=== PATIENT | female | born 1945 | race Caucasian/White ===

== ENCOUNTER 2017-10-17 22:30 | Inpatient (IN) ==
[2017-10-18] MEDS ORDERED: ALBUTEROL/IPRATROPIUM 3 ML NEB RESP TX PRN (00:55)
[2017-10-18] MEDS ORDERED: BISACODYL 5 MG TABLET PO PRN (00:55)
[2017-10-18] MEDS ORDERED: cefTRIAXone 1,000 MG in SYRINGE 1 EACH IV SCH ×2 (01:00→09:00)
[2017-10-18] MEDS ORDERED: GLUCAGON 1 MG VIAL IM PRN (01:01)
[2017-10-18] MEDS ORDERED: AZITHROMYCIN INJ 500 MG in SODIUM CHLORIDE 0.9% 250 ML IV SCH (02:00)
[2017-10-18 02:47] LABS: Apearance,Urine CLOUDY (Clear); Bacteria,Urine Occasional /HPF (Few); Bilirubin,Urine Negative (Negative); Blood, Urine Small mg/dL (Negative); Glucose,Urine (UA) Negative (Negative); Hyaline Casts,Urine 2 /LPF (0-3); Ketones,Urine Negative (Negative); Mucus,Urine Occasional /LPF (Occasional); Nitrite,Urine Negative (Negative); Protein,Urine 30 MG/DL; RBC,Urine 4 /HPF (0-4); Squamous Epithelial Cell,Urine Occasional /HPF (0-10); Urine Color Yellow (Yellow); Urine Specific Gravity 1.011 (1.001-1.035); Urine Urobilinogen < 2.0 EU/DL (0.2-1.0); WBC,Urine 1 /HPF (0-6)
[2017-10-18 04:11] LABS: Basophils # 0.1 10*3/uL (0.0-0.2); Basophils % 0.3 % (0.0-0.8); Hematocrit 31.5 VOL% (35.7-47.0); Hemoglobin 9.9 GM/DL (12.0-16.0); Immature Granulocytes Absolute 0.21 #; Lymphocytes % 4.7 % (21.3-54.2); Mean Corpuscular HGB Conc 31.4 GM/DL (32-36); Mean Corpuscular Hemoglobin 31 PG (27-34); Mean Corpuscular Volume 96.9 FL (87-102); Mean Platelet Volume 10.2 FL (9.6-12.0); Monocytes # 1.1 10*3/uL (0.11-0.8); Monocytes % 5.2 % (1.7-12.7); Neutrophils # 18.8 10*3/uL (1.4-7.4); Neutrophils % 88.8 % (38.7-73.9); Platelet Count 217 T/CUMM (130-400); Red Blood Count 3.25 MC/CUMM (3.8-5.5); Red Cell Distribution Width 13.9 % (9.3-17.3); White Blood Count 21.1 T/CUMM (4-12)
[2017-10-18 04:45] LABS: Albumin 2.3 G/DL (3.4-5.0); Bilirubin,Total 1.1 MG/DL (0.2-1.0); Calcium 9.3 MG/DL (8.5-10.1); Osmolality,Calculated 288.8 MOS/KG (273-304); Potassium 3.9 MMOL/L (3.5-5.1); Risk Ratio 4.04; Thyroid Stimulating Hormone 0.662 uIU/ml (0.358-3.74); Total Protein 6.5 G/DL (6.4-8.3); VLDL CHOLESTEROL 24.4 MG/DL
[2017-10-18 05:04] LABS: Hypochromasia Slight; Lymphocytes 4 % (20-55); Metamyelocytes 1 %; Platelet Estimate Normal; Segmented Neutrophils 91 % (50-85); Total Cells Counted 100
[2017-10-18 05:05] LABS: Ovalocytes 1+
[2017-10-18] MEDS ORDERED: FUROSEMIDE 40 MG/4 ML VIAL IV SCH (08:00)
[2017-10-18] MEDS: INSULIN LISPRO 100 UNIT/ML SUBCUT SCH ×4 (08:30→20:21)
[2017-10-18] MEDS ORDERED: METOPROLOL TARTRATE 25 MG TABLET PO SCH (09:00)
[2017-10-18] MEDS ORDERED: PANTOPRAZOLE 40 MG TABLET PO SCH (09:00)
[2017-10-18] MEDS ORDERED: CARVEDILOL 12.5 MG TABLET PO SCH (09:00)
[2017-10-18] MEDS: ENOXAPARIN 30 MG/0.3 ML SYRINGE SUBCUT SCH (10:07)
[2017-10-18] MEDS: LISINOPRIL 20 MG TABLET PO SCH (10:08)
[2017-10-18] MEDS: guaiFENesin/DM ER 600-30 MG TABLET PO SCH ×2 (10:08→20:45)
[2017-10-18] MEDS: ASPIRIN CHEW 81 MG TABLET PO SCH (10:08)
[2017-10-18] MEDS: glipiZIDE 5 MG TABLET PO SCH (10:08)
[2017-10-18] MEDS: CLOPIDOGREL 75 MG TABLET PO SCH (10:08)
[2017-10-18] MEDS: ALLOPURINOL 300 MG TABLET PO SCH (10:08)
[2017-10-18] MEDS: PANTOPRAZOLE 40 MG TABLET PO SCH (10:08)
[2017-10-18] MEDS: CARVEDILOL 6.25 MG TABLET PO SCH ×2 (10:11→20:21)
[2017-10-18 11:20] LABS: Amorphous Crystals,Urine Occasional /HPF (Few); Apearance,Urine CLOUDY (Clear); Bilirubin,Urine Negative (Negative); Blood, Urine Small mg/dL (Negative); Glucose,Urine (UA) Negative (Negative); Ketones,Urine Negative (Negative); Mucus,Urine Occasional /LPF (Occasional); Nitrite,Urine Negative (Negative); Protein,Urine Negative; RBC,Urine 5 /HPF (0-4); Squamous Epithelial Cell,Urine Occasional /HPF (0-10); Urine Color Yellow (Yellow); Urine Urobilinogen < 2.0 EU/DL (0.2-1.0)
[2017-10-18] MEDS ORDERED: LEVOFLOXACIN INJ 750 MG in PREMIX 1 EACH IV ONE (12:00)
[2017-10-18] MEDS: NITROGLYCERIN 2% OINT 1 INCH/GM PACK TOP SCH ×3 (15:33→23:39)
[2017-10-18] MEDS: cefTRIAXone 2,000 MG VIAL IM SCH (15:33)
[2017-10-18] MEDS: FUROSEMIDE 40 MG/4 ML VIAL IV SCH (16:46)
[2017-10-18] MEDS: ALBUTEROL/IPRATROPIUM 3 ML NEB RESP TX SCH (19:11)
[2017-10-18] MEDS: LISINOPRIL 10 MG TABLET PO SCH (20:22)
[2017-10-18] MEDS: ZINC OXIDE PASTE 113 GM TUBE TOP SCH (20:45)
[2017-10-19] MEDS: DEXTROSE 50% 25 GM/50 ML VIAL IV PRN ×3 (00:21→22:55)
[2017-10-19] MEDS: ALBUTEROL/IPRATROPIUM 3 ML NEB RESP TX SCH ×4 (00:35→19:23)
[2017-10-19] MEDS: NITROGLYCERIN 2% OINT 1 INCH/GM PACK TOP SCH ×3 (06:08→17:07)
[2017-10-19] MEDS: INSULIN LISPRO 100 UNIT/ML SUBCUT SCH ×4 (08:32→21:30)
[2017-10-19] MEDS: FUROSEMIDE 40 MG/4 ML VIAL IV SCH ×2 (09:41→16:59)
[2017-10-19] MEDS: ENOXAPARIN 30 MG/0.3 ML SYRINGE SUBCUT SCH (09:43)
[2017-10-19] MEDS: guaiFENesin/DM ER 600-30 MG TABLET PO SCH ×2 (09:44→21:29)
[2017-10-19] MEDS: PANTOPRAZOLE 40 MG TABLET PO SCH (09:44)
[2017-10-19] MEDS: glipiZIDE 5 MG TABLET PO SCH (09:44)
[2017-10-19] MEDS: CARVEDILOL 6.25 MG TABLET PO SCH ×2 (09:44→21:29)
[2017-10-19] MEDS: ALLOPURINOL 300 MG TABLET PO SCH (09:44)
[2017-10-19] MEDS: CLOPIDOGREL 75 MG TABLET PO SCH (09:44)
[2017-10-19] MEDS: LISINOPRIL 20 MG TABLET PO SCH (09:45)
[2017-10-19] MEDS: ASPIRIN CHEW 81 MG TABLET PO SCH (09:45)
[2017-10-19] MEDS: ZINC OXIDE PASTE 113 GM TUBE TOP SCH ×2 (09:46→21:29)
[2017-10-19] MEDS: SODIUM CHLORIDE 0.9% 1,000 ML IV SCH ×2 (10:45→21:30)
[2017-10-19 10:59] LABS: Calcium 8.9 MG/DL (8.5-10.1); Osmolality,Calculated 289.4 MOS/KG (273-304); Potassium 4.3 MMOL/L (3.5-5.1)
[2017-10-19] MEDS: cefTRIAXone 2,000 MG VIAL IM SCH (13:28)
[2017-10-19] MEDS ORDERED: cefTRIAXone 2,000 MG VIAL IV SCH (13:35)
[2017-10-19] MEDS: ONDANSETRON 4 MG/2 ML VIAL IV PRN (13:53)
[2017-10-19] MEDS: cefTRIAXone 2,000 MG in SYRINGE 1 EACH IV SCH (14:10)
[2017-10-19] MEDS: LISINOPRIL 10 MG TABLET PO SCH (21:30)
[2017-10-20] MEDS: ALBUTEROL/IPRATROPIUM 3 ML NEB RESP TX SCH ×4 (01:00→19:29)
[2017-10-20] MEDS: NITROGLYCERIN 2% OINT 1 INCH/GM PACK TOP SCH ×4 (01:24→17:21)
[2017-10-20] MEDS: DEXTROSE 5% NACL 0.9% 1,000 ML IV SCH ×2 (06:08→14:00)
[2017-10-20 06:44] LABS: Basophils % 0.1 % (0.0-0.8); Eosinophils % 0.1 % (0.00-10.9); Hematocrit 33.6 VOL% (35.7-47.0); Hemoglobin 10.3 GM/DL (12.0-16.0); Immature Granulocytes % 1.5 %; Immature Granulocytes Absolute 0.14 #; Lymphocytes # 1.1 10*3/uL (1.4-4.0); Lymphocytes % 11.8 % (21.3-54.2); Mean Corpuscular HGB Conc 30.7 GM/DL (32-36); Mean Corpuscular Hemoglobin 30 PG (27-34); Mean Corpuscular Volume 98.2 FL (87-102); Mean Platelet Volume 10.6 FL (9.6-12.0); Monocytes # 0.9 10*3/uL (0.11-0.8); Monocytes % 9.3 % (1.7-12.7); NRBC # 0.05 10*3/uL; Neutrophils # 7.1 10*3/uL (1.4-7.4); Neutrophils % 77.2 % (38.7-73.9); Platelet Count 279 T/CUMM (130-400); Red Blood Count 3.42 MC/CUMM (3.8-5.5); Red Cell Distribution Width 14.4 % (9.3-17.3); White Blood Count 9.2 T/CUMM (4-12)
[2017-10-20 07:18] LABS: Calcium 8.4 MG/DL (8.5-10.1); Osmolality,Calculated 295.2 MOS/KG (273-304); Potassium 4.4 MMOL/L (3.5-5.1)
[2017-10-20] MEDS: INSULIN LISPRO 100 UNIT/ML SUBCUT SCH ×4 (07:48→20:09)
[2017-10-20 08:05] LABS: Polychromasia Slight
[2017-10-20] MEDS: ASPIRIN CHEW 81 MG TABLET PO SCH (09:05)
[2017-10-20] MEDS: guaiFENesin/DM ER 600-30 MG TABLET PO SCH ×2 (09:05→20:13)
[2017-10-20] MEDS: PANTOPRAZOLE 40 MG TABLET PO SCH (09:05)
[2017-10-20] MEDS: CARVEDILOL 6.25 MG TABLET PO SCH ×2 (09:05→20:13)
[2017-10-20] MEDS: ENOXAPARIN 30 MG/0.3 ML SYRINGE SUBCUT SCH (09:11)
[2017-10-20] MEDS: ZINC OXIDE PASTE 113 GM TUBE TOP SCH ×2 (09:34→20:13)
[2017-10-20] MEDS: LISINOPRIL 20 MG TABLET PO SCH (09:34)
[2017-10-20] MEDS: ALLOPURINOL 300 MG TABLET PO SCH (09:58)
[2017-10-20] MEDS: CLOPIDOGREL 75 MG TABLET PO SCH (09:58)
[2017-10-20] MEDS: LEVOFLOXACIN INJ 500 MG in PREMIX 1 EACH IV SCH (12:45)
[2017-10-20] MEDS: cefTRIAXone 2,000 MG in SYRINGE 1 EACH IV SCH (15:45)
[2017-10-20] MEDS: ONDANSETRON 4 MG/2 ML VIAL IV PRN (20:13)
[2017-10-20] MEDS ORDERED: ALUMINUM/MAGNES/SIMETH MAX STR 30 ML UDCUP PO PRN (21:16)
[2017-10-21] MEDS: NITROGLYCERIN 2% OINT 1 INCH/GM PACK TOP SCH ×5 (00:11→23:05)
[2017-10-21] MEDS: ALBUTEROL/IPRATROPIUM 3 ML NEB RESP TX SCH ×4 (01:29→19:09)
[2017-10-21 07:23] LABS: Calcium 8.2 MG/DL (8.5-10.1); Osmolality,Calculated 299.4 MOS/KG (273-304); Potassium 4.6 MMOL/L (3.5-5.1)
[2017-10-21] MEDS: DEXTROSE 5% NACL 0.9% 1,000 ML IV SCH (08:51)
[2017-10-21] MEDS: ASPIRIN CHEW 81 MG TABLET PO SCH (08:52)
[2017-10-21] MEDS: INSULIN LISPRO 100 UNIT/ML SUBCUT SCH ×4 (08:52→19:59)
[2017-10-21] MEDS: CLOPIDOGREL 75 MG TABLET PO SCH (08:52)
[2017-10-21] MEDS: guaiFENesin/DM ER 600-30 MG TABLET PO SCH ×2 (08:52→19:59)
[2017-10-21] MEDS: ENOXAPARIN 30 MG/0.3 ML SYRINGE SUBCUT SCH (08:52)
[2017-10-21] MEDS: PANTOPRAZOLE 40 MG TABLET PO SCH (08:52)
[2017-10-21] MEDS: ZINC OXIDE PASTE 113 GM TUBE TOP SCH ×2 (08:53→19:59)
[2017-10-21] MEDS: CARVEDILOL 6.25 MG TABLET PO SCH ×2 (08:53→19:59)
[2017-10-21] MEDS: SODIUM CHLORIDE 23.4% CONC INJ 38.5 MEQ, SODIUM BICARB INJ 50 MEQ in STERILE WATER INJ ... IV SCH ×2 (10:44→19:57)
[2017-10-21] MEDS: cefTRIAXone 2,000 MG in SYRINGE 1 EACH IV SCH (14:46)
[2017-10-21] MEDS: SODIUM BICARB INJ 50 MEQ in SODIUM CHLORIDE 0.45% 1,000 ML IV SCH (19:08)
[2017-10-22] MEDS: ALBUTEROL/IPRATROPIUM 3 ML NEB RESP TX SCH ×4 (00:08→19:08)
[2017-10-22] MEDS: NITROGLYCERIN 2% OINT 1 INCH/GM PACK TOP SCH ×3 (05:15→17:04)
[2017-10-22] MEDS: SODIUM CHLORIDE 23.4% CONC INJ 38.5 MEQ, SODIUM BICARB INJ 50 MEQ in STERILE WATER INJ ... IV SCH (06:16)
[2017-10-22] MEDS: INSULIN LISPRO 100 UNIT/ML SUBCUT SCH ×4 (07:58→21:31)
[2017-10-22] MEDS: SODIUM BICARB INJ 50 MEQ in SODIUM CHLORIDE 0.45% 1,000 ML IV SCH ×4 (07:59→21:32)
[2017-10-22 08:21] LABS: Calcium 8.2 MG/DL (8.5-10.1); Osmolality,Calculated 289.8 MOS/KG (273-304); Potassium 4.9 MMOL/L (3.5-5.1)
[2017-10-22] MEDS: PANTOPRAZOLE 40 MG TABLET PO SCH (09:05)
[2017-10-22] MEDS: ASPIRIN CHEW 81 MG TABLET PO SCH (09:05)
[2017-10-22] MEDS: ENOXAPARIN 30 MG/0.3 ML SYRINGE SUBCUT SCH (09:05)
[2017-10-22] MEDS: ZINC OXIDE PASTE 113 GM TUBE TOP SCH ×2 (09:05→21:31)
[2017-10-22] MEDS: guaiFENesin/DM ER 600-30 MG TABLET PO SCH ×2 (09:05→21:31)
[2017-10-22] MEDS: CARVEDILOL 6.25 MG TABLET PO SCH ×2 (09:05→21:31)
[2017-10-22] MEDS: CLOPIDOGREL 75 MG TABLET PO SCH (09:05)
[2017-10-22] MEDS: ACETAMINOPHEN 325 MG TABLET PO PRN (09:09)
[2017-10-22] MEDS ORDERED: TUBERCULIN SKIN TEST 0.1 ML SYRINGE INTRADERM ONE (10:30)
[2017-10-22] MEDS: LEVOFLOXACIN INJ 500 MG in PREMIX 1 EACH IV SCH (12:40)
[2017-10-22] MEDS: cefTRIAXone 2,000 MG in SYRINGE 1 EACH IV SCH (14:44)
[2017-10-23] MEDS: ALBUTEROL/IPRATROPIUM 3 ML NEB RESP TX SCH ×4 (00:24→19:07)
[2017-10-23] MEDS: NITROGLYCERIN 2% OINT 1 INCH/GM PACK TOP SCH ×4 (01:11→17:05)
[2017-10-23] MEDS: ACETAMINOPHEN 325 MG TABLET PO PRN (06:16)
[2017-10-23 07:56] LABS: Basophils % 0.3 % (0.0-0.8); Eosinophils # 0.1 10*3/uL (0.0-0.87); Eosinophils % 0.7 % (0.00-10.9); Hematocrit 27.5 VOL% (35.7-47.0); Immature Granulocytes % 5.3 %; Immature Granulocytes Absolute 0.62 #; Lymphocytes # 0.7 10*3/uL (1.4-4.0); Lymphocytes % 5.8 % (21.3-54.2); Mean Corpuscular HGB Conc 32.7 GM/DL (32-36); Mean Corpuscular Hemoglobin 31 PG (27-34); Mean Corpuscular Volume 93.2 FL (87-102); Mean Platelet Volume 9.8 FL (9.6-12.0); Monocytes # 0.9 10*3/uL (0.11-0.8); Monocytes % 7.7 % (1.7-12.7); Neutrophils # 9.3 10*3/uL (1.4-7.4); Neutrophils % 80.2 % (38.7-73.9); Platelet Count 294 T/CUMM (130-400); Red Blood Count 2.95 MC/CUMM (3.8-5.5); Red Cell Distribution Width 13.8 % (9.3-17.3); White Blood Count 11.6 T/CUMM (4-12)
[2017-10-23 08:20] LABS: Albumin 1.7 G/DL (3.4-5.0); Calcium 8.5 MG/DL (8.5-10.1); Osmolality,Calculated 293.4 MOS/KG (273-304); Potassium 4.9 MMOL/L (3.5-5.1)
[2017-10-23 08:27] LABS: Calcium 8.5 MG/DL (8.5-10.1); Osmolality,Calculated 293.4 MOS/KG (273-304); Potassium 4.9 MMOL/L (3.5-5.1)
[2017-10-23 08:46] LABS: Anisocytosis Slight; Band Neutrophils 3 % (0-10); Eosinophils 1 % (0-10); Hypochromasia Slight; Lymphocytes 7 % (20-55); Segmented Neutrophils 81 % (50-85); Total Cells Counted 100
[2017-10-23 08:47] LABS: Platelet Estimate Normal
[2017-10-23] MEDS: ZINC OXIDE PASTE 113 GM TUBE TOP SCH ×2 (10:38→20:53)
[2017-10-23] MEDS: ENOXAPARIN 30 MG/0.3 ML SYRINGE SUBCUT SCH (10:38)
[2017-10-23] MEDS: guaiFENesin/DM ER 600-30 MG TABLET PO SCH ×2 (10:38→20:53)
[2017-10-23] MEDS: ASPIRIN CHEW 81 MG TABLET PO SCH (10:39)
[2017-10-23] MEDS: CARVEDILOL 6.25 MG TABLET PO SCH ×2 (10:39→20:53)
[2017-10-23] MEDS: CLOPIDOGREL 75 MG TABLET PO SCH (10:39)
[2017-10-23] MEDS: PANTOPRAZOLE 40 MG TABLET PO SCH (10:39)
[2017-10-23] MEDS: SODIUM BICARB INJ 50 MEQ in SODIUM CHLORIDE 0.45% 1,000 ML IV SCH ×2 (10:48→15:36)
[2017-10-23] MEDS: INSULIN LISPRO 100 UNIT/ML SUBCUT SCH ×4 (10:49→23:58)
[2017-10-23] MEDS: cefTRIAXone 2,000 MG in SYRINGE 1 EACH IV SCH (15:35)
[2017-10-24] MEDS: ALBUTEROL/IPRATROPIUM 3 ML NEB RESP TX SCH ×4 (00:39→20:26)
[2017-10-24] MEDS: NITROGLYCERIN 2% OINT 1 INCH/GM PACK TOP SCH ×2 (02:12→06:26)
[2017-10-24] MEDS: SODIUM BICARB INJ 50 MEQ in SODIUM CHLORIDE 0.45% 1,000 ML IV SCH ×3 (03:31→22:44)
[2017-10-24 06:05] LABS: Basophils # 0.1 10*3/uL (0.0-0.2); Basophils % 0.5 % (0.0-0.8); Eosinophils # 0.1 10*3/uL (0.0-0.87); Eosinophils % 0.8 % (0.00-10.9); Hematocrit 27.3 VOL% (35.7-47.0); Hemoglobin 8.9 GM/DL (12.0-16.0); Immature Granulocytes % 9.6 %; Immature Granulocytes Absolute 1.15 #; Lymphocytes # 0.8 10*3/uL (1.4-4.0); Lymphocytes % 6.9 % (21.3-54.2); Mean Corpuscular HGB Conc 32.6 GM/DL (32-36); Mean Corpuscular Hemoglobin 30 PG (27-34); Mean Corpuscular Volume 93.2 FL (87-102); Mean Platelet Volume 9.6 FL (9.6-12.0); Monocytes # 0.9 10*3/uL (0.11-0.8); Monocytes % 7.2 % (1.7-12.7); Platelet Count 353 T/CUMM (130-400); Red Blood Count 2.93 MC/CUMM (3.8-5.5); Red Cell Distribution Width 13.7 % (9.3-17.3)
[2017-10-24] MEDS: ACETAMINOPHEN 325 MG TABLET PO PRN (06:28)
[2017-10-24 06:39] LABS: Albumin 1.7 G/DL (3.4-5.0); Calcium 8.6 MG/DL (8.5-10.1); Osmolality,Calculated 303.5 MOS/KG (273-304); Potassium 4.7 MMOL/L (3.5-5.1)
[2017-10-24] MEDS: METOPROLOL TARTRATE 25 MG TABLET PO SCH ×2 (06:57→09:16)
[2017-10-24 07:20] LABS: Hypochromasia 1+; Target Cells Slight
[2017-10-24] MEDS: INSULIN LISPRO 100 UNIT/ML SUBCUT SCH ×4 (08:26→20:12)
[2017-10-24] MEDS: guaiFENesin/DM ER 600-30 MG TABLET PO SCH ×2 (09:10→20:12)
[2017-10-24] MEDS: ENOXAPARIN 30 MG/0.3 ML SYRINGE SUBCUT SCH (09:10)
[2017-10-24] MEDS: CARVEDILOL 6.25 MG TABLET PO SCH (09:10)
[2017-10-24] MEDS: CLOPIDOGREL 75 MG TABLET PO SCH (09:10)
[2017-10-24] MEDS: ASPIRIN CHEW 81 MG TABLET PO SCH (09:10)
[2017-10-24] MEDS: PANTOPRAZOLE 40 MG TABLET PO SCH (09:10)
[2017-10-24] MEDS: ZINC OXIDE PASTE 113 GM TUBE TOP SCH ×2 (09:11→20:14)
[2017-10-24] MEDS ORDERED: METOPROLOL TARTRATE 5 MG/5 ML VIAL IV ONE (10:06)
[2017-10-24] MEDS: LEVOFLOXACIN INJ 500 MG in PREMIX 1 EACH IV SCH (15:14)
[2017-10-24] MEDS: cefTRIAXone 2,000 MG in SYRINGE 1 EACH IV SCH (15:14)
[2017-10-24] MEDS: CARVEDILOL 12.5 MG TABLET PO SCH (20:12)
[2017-10-24] MEDS ORDERED: APIXABAN 2.5 MG TABLET PO SCH (21:00)
[2017-10-25] MEDS: ALBUTEROL/IPRATROPIUM 3 ML NEB RESP TX SCH ×4 (00:55→20:41)
[2017-10-25 04:55] LABS: Basophils # 0.1 10*3/uL (0.0-0.2); Basophils % 0.5 % (0.0-0.8); Eosinophils # 0.2 10*3/uL (0.0-0.87); Eosinophils % 1.7 % (0.00-10.9); Hematocrit 25.9 VOL% (35.7-47.0); Hemoglobin 8.6 GM/DL (12.0-16.0); Immature Granulocytes % 10.5 %; Immature Granulocytes Absolute 1.31 #; Lymphocytes # 0.9 10*3/uL (1.4-4.0); Lymphocytes % 6.8 % (21.3-54.2); Mean Corpuscular HGB Conc 33.2 GM/DL (32-36); Mean Corpuscular Hemoglobin 31 PG (27-34); Mean Corpuscular Volume 92.2 FL (87-102); Mean Platelet Volume 9.6 FL (9.6-12.0); Monocytes # 0.9 10*3/uL (0.11-0.8); Monocytes % 7.4 % (1.7-12.7); Neutrophils # 9.2 10*3/uL (1.4-7.4); Neutrophils % 73.1 % (38.7-73.9); Platelet Count 387 T/CUMM (130-400); Red Blood Count 2.81 MC/CUMM (3.8-5.5); Red Cell Distribution Width 13.9 % (9.3-17.3); White Blood Count 12.5 T/CUMM (4-12)
[2017-10-25 05:19] LABS: Albumin 1.6 G/DL (3.4-5.0); Calcium 8.8 MG/DL (8.5-10.1); Osmolality,Calculated 299.7 MOS/KG (273-304); Potassium 4.8 MMOL/L (3.5-5.1)
[2017-10-25 05:40] LABS: Band Neutrophils 2 % (0-10); Hypochromasia 1+; Lymphocytes 11 % (20-55); Segmented Neutrophils 78 % (50-85); Total Cells Counted 100
[2017-10-25 05:41] LABS: Microcytosis Slight; Ovalocytes Slight; Platelet Estimate Normal
[2017-10-25] MEDS: INSULIN LISPRO 100 UNIT/ML SUBCUT SCH ×4 (07:31→20:00)
[2017-10-25] MEDS ORDERED: CLOPIDOGREL 75 MG TABLET PO SCH (09:00)
[2017-10-25] MEDS: PANTOPRAZOLE 40 MG TABLET PO SCH (09:11)
[2017-10-25] MEDS: guaiFENesin/DM ER 600-30 MG TABLET PO SCH ×2 (09:11→20:00)
[2017-10-25] MEDS: ASPIRIN CHEW 81 MG TABLET PO SCH (09:11)
[2017-10-25] MEDS: CARVEDILOL 12.5 MG TABLET PO SCH ×2 (09:11→20:00)
[2017-10-25] MEDS: ZINC OXIDE PASTE 113 GM TUBE TOP SCH ×2 (09:12→20:00)
[2017-10-25] MEDS ORDERED: FLUCONAZOLE INJ 200 MG in PREMIX 1 EACH IV ONE (12:17)
[2017-10-25] MEDS: SODIUM BICARB INJ 50 MEQ in SODIUM CHLORIDE 0.45% 1,000 ML IV SCH (13:06)
[2017-10-25] MEDS ORDERED: VANCOMYCIN INJ 1,750 MG in SODIUM CHLORIDE 0.9% 500 ML IV SCH (14:00)
[2017-10-25] MEDS: cefTRIAXone 2,000 MG in SYRINGE 1 EACH IV SCH (14:10)
[2017-10-26] MEDS: ALBUTEROL/IPRATROPIUM 3 ML NEB RESP TX SCH ×4 (01:16→19:11)
[2017-10-26] MEDS: SODIUM BICARB INJ 50 MEQ in SODIUM CHLORIDE 0.45% 1,000 ML IV SCH ×2 (08:24→20:35)
[2017-10-26] MEDS: guaiFENesin/DM ER 600-30 MG TABLET PO SCH ×2 (08:24→20:21)
[2017-10-26] MEDS: ASPIRIN CHEW 81 MG TABLET PO SCH (08:25)
[2017-10-26] MEDS: PANTOPRAZOLE 40 MG TABLET PO SCH (08:25)
[2017-10-26] MEDS: ZINC OXIDE PASTE 113 GM TUBE TOP SCH ×2 (08:25→20:32)
[2017-10-26] MEDS: CARVEDILOL 12.5 MG TABLET PO SCH ×2 (08:25→20:21)
[2017-10-26] MEDS: INSULIN LISPRO 100 UNIT/ML SUBCUT SCH ×4 (08:35→20:32)
[2017-10-26 09:11] LABS: Basophils # 0.1 10*3/uL (0.0-0.2); Basophils % 0.6 % (0.0-0.8); Eosinophils # 0.2 10*3/uL (0.0-0.87); Eosinophils % 1.1 % (0.00-10.9); Hematocrit 27.2 VOL% (35.7-47.0); Hemoglobin 8.6 GM/DL (12.0-16.0); Immature Granulocytes % 9.4 %; Immature Granulocytes Absolute 1.34 #; Lymphocytes # 1.1 10*3/uL (1.4-4.0); Lymphocytes % 7.4 % (21.3-54.2); Mean Corpuscular HGB Conc 31.6 GM/DL (32-36); Mean Corpuscular Hemoglobin 30 PG (27-34); Mean Corpuscular Volume 95.8 FL (87-102); Mean Platelet Volume 9.1 FL (9.6-12.0); Neutrophils # 10.6 10*3/uL (1.4-7.4); Neutrophils % 74.5 % (38.7-73.9); Platelet Count 398 T/CUMM (130-400); Red Blood Count 2.84 MC/CUMM (3.8-5.5); Red Cell Distribution Width 14.1 % (9.3-17.3); White Blood Count 14.3 T/CUMM (4-12)
[2017-10-26 09:21] LABS: Calcium 9.2 MG/DL (8.5-10.1); Osmolality,Calculated 291.8 MOS/KG (273-304); Potassium 4.9 MMOL/L (3.5-5.1)
[2017-10-26 09:32] LABS: Band Neutrophils 1 % (0-10); Eosinophils 1 % (0-10); Hypochromasia 1+; Lymphocytes 6 % (20-55); Metamyelocytes 1 %; Myelocytes 1 %; Segmented Neutrophils 82 % (50-85); Total Cells Counted 100
[2017-10-26 09:33] LABS: Platelet Estimate Normal
[2017-10-27] MEDS: ALBUTEROL/IPRATROPIUM 3 ML NEB RESP TX SCH ×4 (00:40→19:35)
[2017-10-27 05:40] LABS: Basophils # 0.1 10*3/uL (0.0-0.2); Basophils % 0.5 % (0.0-0.8); Eosinophils # 0.2 10*3/uL (0.0-0.87); Eosinophils % 1.2 % (0.00-10.9); Hematocrit 26.1 VOL% (35.7-47.0); Hemoglobin 8.5 GM/DL (12.0-16.0); Immature Granulocytes Absolute 1.17 #; Lymphocytes # 1.2 10*3/uL (1.4-4.0); Lymphocytes % 8.3 % (21.3-54.2); Mean Corpuscular HGB Conc 32.6 GM/DL (32-36); Mean Corpuscular Hemoglobin 31 PG (27-34); Mean Corpuscular Volume 94.6 FL (87-102); Mean Platelet Volume 8.8 FL (9.6-12.0); Monocytes # 1.2 10*3/uL (0.11-0.8); Monocytes % 8.3 % (1.7-12.7); Neutrophils # 10.8 10*3/uL (1.4-7.4); Neutrophils % 73.7 % (38.7-73.9); Platelet Count 357 T/CUMM (130-400); Red Blood Count 2.76 MC/CUMM (3.8-5.5); Red Cell Distribution Width 14.4 % (9.3-17.3); White Blood Count 14.6 T/CUMM (4-12)
[2017-10-27 06:04] LABS: Calcium 9.3 MG/DL (8.5-10.1); Osmolality,Calculated 291.7 MOS/KG (273-304); Potassium 5.1 MMOL/L (3.5-5.1)
[2017-10-27 06:11] LABS: Band Neutrophils 5 % (0-10); Eosinophils 1 % (0-10); Lymphocytes 14 % (20-55); Myelocytes 3 %; Segmented Neutrophils 76 % (50-85); Total Cells Counted 100
[2017-10-27 06:12] LABS: Anisocytosis 1+; Hypochromasia 1+; Platelet Estimate Normal; Tear Drop Cells Few
[2017-10-27] MEDS: ASPIRIN CHEW 81 MG TABLET PO SCH (09:58)
[2017-10-27] MEDS: guaiFENesin/DM ER 600-30 MG TABLET PO SCH ×2 (09:58→20:57)
[2017-10-27] MEDS: PANTOPRAZOLE 40 MG TABLET PO SCH (09:58)
[2017-10-27] MEDS: CARVEDILOL 12.5 MG TABLET PO SCH ×2 (09:58→20:57)
[2017-10-27] MEDS: ZINC OXIDE PASTE 113 GM TUBE TOP SCH ×2 (09:58→20:58)
[2017-10-27] MEDS ORDERED: BUMETANIDE 1 MG/4 ML VIAL IV ONE (10:00)
[2017-10-27] MEDS ORDERED: VANCOMYCIN INJ 1,750 MG in SODIUM CHLORIDE 0.9% 500 ML IV PRN (10:00)
[2017-10-27] MEDS: SODIUM BICARB INJ 50 MEQ in SODIUM CHLORIDE 0.45% 1,000 ML IV SCH (10:04)
[2017-10-27] MEDS: INSULIN LISPRO 100 UNIT/ML SUBCUT SCH ×4 (10:06→20:58)
[2017-10-27] MEDS ORDERED: VANCOMYCIN INJ 1,750 MG in SODIUM CHLORIDE 0.9% 500 ML IV ONE (10:30)
[2017-10-27] MEDS: ACETAMINOPHEN 325 MG TABLET PO PRN ×2 (13:31→22:13)
[2017-10-27] MEDS ORDERED: amLODIPine 5 MG TABLET PO SCH (16:00)
[2017-10-27] MEDS: hydroCHLOROthiazide 25 MG TABLET PO SCH (16:15)
[2017-10-27] MEDS: DESITIN 4OZ/NYSTATIN 15 GRAM MIXTURE PASTE TOP SCH (20:57)
[2017-10-28] MEDS: ALBUTEROL/IPRATROPIUM 3 ML NEB RESP TX SCH ×3 (00:55→13:45)
[2017-10-28 06:59] LABS: Basophils # 0.1 10*3/uL (0.0-0.2); Basophils % 0.4 % (0.0-0.8); Eosinophils # 0.3 10*3/uL (0.0-0.87); Eosinophils % 2.1 % (0.00-10.9); Hematocrit 26.4 VOL% (35.7-47.0); Hemoglobin 8.3 GM/DL (12.0-16.0); Immature Granulocytes % 6.9 %; Immature Granulocytes Absolute 0.94 #; Lymphocytes # 1.2 10*3/uL (1.4-4.0); Lymphocytes % 8.9 % (21.3-54.2); Mean Corpuscular HGB Conc 31.4 GM/DL (32-36); Mean Corpuscular Hemoglobin 31 PG (27-34); Mean Corpuscular Volume 97.1 FL (87-102); Mean Platelet Volume 9.1 FL (9.6-12.0); Monocytes # 1.3 10*3/uL (0.11-0.8); Monocytes % 9.7 % (1.7-12.7); Neutrophils # 9.7 10*3/uL (1.4-7.4); Platelet Count 389 T/CUMM (130-400); Red Blood Count 2.72 MC/CUMM (3.8-5.5); Red Cell Distribution Width 14.2 % (9.3-17.3); White Blood Count 13.5 T/CUMM (4-12)
[2017-10-28 07:27] LABS: Band Neutrophils 2 % (0-10); Calcium 9.4 MG/DL (8.5-10.1); Hypochromasia 1+; Lymphocytes 6 % (20-55); Myelocytes 1 %; Osmolality,Calculated 295.5 MOS/KG (273-304); Potassium 4.9 MMOL/L (3.5-5.1); Segmented Neutrophils 82 % (50-85); Total Cells Counted 100
[2017-10-28 07:28] LABS: Microcytosis Slight; Platelet Estimate Normal
[2017-10-28] MEDS: guaiFENesin/DM ER 600-30 MG TABLET PO SCH (08:19)
[2017-10-28] MEDS: INSULIN LISPRO 100 UNIT/ML SUBCUT SCH ×2 (08:19→13:46)
[2017-10-28] MEDS: PANTOPRAZOLE 40 MG TABLET PO SCH (08:19)
[2017-10-28] MEDS: hydroCHLOROthiazide 25 MG TABLET PO SCH (08:19)
[2017-10-28] MEDS: CARVEDILOL 12.5 MG TABLET PO SCH (08:19)
[2017-10-28] MEDS: ASPIRIN CHEW 81 MG TABLET PO SCH (08:19)
[2017-10-28] MEDS: ZINC OXIDE PASTE 113 GM TUBE TOP SCH (10:15)
[2017-10-28] MEDS: DESITIN 4OZ/NYSTATIN 15 GRAM MIXTURE PASTE TOP SCH (10:15)
[2017-10-28 13:55] VITALS: BP 168/71
== END 2017-10-28 15:30 | DRG 177 ==
LOC: SUATTDRO 23:43 → N.5E 23:43
PROVIDERS: ADMIT Internal Medicine Infectious Disease; ATTEND Family Medicine